=== PATIENT | female | born 1995 ===

== ENCOUNTER 2018-12-21 02:11 | Emergency (ER) | payer OTHER ==
[2018-12-21 02:22] VITALS: RESP 16; TEMP 97.4
[2018-12-21 03:51] VITALS: BP 124/79; PULSE 72
--- NOTE | 2018-12-21 03:51 | C.PDOC ---
History Of Present Illness 23 year old female with Hx of asthma presents with 2 weeks of SOB. Patient states it does not feel like her asthma, reports it feels like she cannot take a full breath. She went to her PMD 5 days ago who gave her steroids and a refill of her albuterol inhaler which she has been using with no relief. Patient admits she feels the symptoms only when she thinks about breathing. Denies illicit drug use, cigarette use, fever, chills, nausea, or vomiting. Time Seen by Provider: 12/21/18 02:30 Chief Complaint (Nursing): Shortness Of Breath History Per: Patient History/Exam Limitations: no limitations Onset/Duration Of Symptoms: Days (2 weeks) Current Symptoms Are (Timing): Still Present Current Respiratory Medications: Albuterol, Other (Steroids) Associated Symptoms: denies: Fever, Chills, Other (Nausea, vomiting) Past Medical History Reviewed: Historical Data, Nursing Documentation, Vital Signs Vital Signs: Last Vital Signs Temp 97.4 F L 12/21/18 02:19 Pulse 75 12/21/18 02:19 Resp 16 12/21/18 02:31 BP 125/84 12/21/18 02:19 Pulse Ox 100 12/21/18 02:31 - Medical History PMH: Asthma Family History: States: Unknown Family Hx - Social History Hx Alcohol Use: Yes Hx Substance Use: No Review Of Systems Constitutional: Negative for: Fever, Chills ENT: Negative for: Mouth Swelling Cardiovascular: Negative for: Chest Pain, Palpitations Respiratory: Positive for: Shortness of Breath Gastrointestinal: Negative for: Nausea, Vomiting Genitourinary: Negative for: Dysuria, Hematuria Musculoskeletal: Negative for: Back Pain Skin: Negative for: Rash Physical Exam - Physical Exam Appears: Non-toxic, No Acute Distress Skin: Normal Color, Warm, No Rash Head: Atraumatic, Normacephalic Eye(s): bilateral: Normal Inspection Oral Mucosa: Moist Throat: Normal (No swelling or injection), No Exudate Neck: Normal ROM, Supple Cardiovascular: Rhythm Regular Respiratory: Normal Breath Sounds, No Accessory Muscle Use, Other (Normal inspiratory effort, moving air well, speaking in full sentences) Neurological/Psych: Oriented x3, Normal Speech ED Course And Treatment - Laboratory Results Lab Results: D-Dimer, Quantitative < 200 ng/mlDDU (0-243) 12/21/18 03:04 O2 Sat by Pulse Oximetry: 100 (room air) Pulse Ox Interpretation: Normal - Radiology CXR: Interpreted by Me, Viewed By Me CXR Interpretation: Yes: No Acute Disease. No: Infiltrates Medical Decision Making Medical Decision Making: CXR was negative, ddimer checked as patient admits she was on control which she stopped 2 weeks ago, no recent prolonged travel, ddimer was negative, referred back to primary for follow up. Disposition Counseled Patient/Family Regarding: Diagnosis, Need For Followup - Disposition Referrals: [facility] [Outside] Disposition: HOME/ ROUTINE Disposition Time: 03:47 Condition: STABLE Instructions: Shortness of Breath (Dyspnea) (DC) Forms: [facility] ([place]ian), General Discharge Instructions - Clinical Impression Clinical Impression: SOB (shortness of breath) - PA / [employer] / Resident Statement MD/DO has reviewed & agrees with the documentation as recorded. - Scribe Statement The provider has reviewed the documentation as recorded by the Scribe Topher Lemos All medical record entries made by the Scribe were at my direction and personally dictated by me. I have reviewed the chart and agree that the record accurately reflects my personal performance of the history, physical exam, medical decision making, and the department course for this patient. I have also personally directed, reviewed, and agree with the discharge instructions and disposition.
[2018-12-21 03:52] VITALS: O2SAT 100
--- NOTE | 2018-12-21 17:39 | RAD ---
Date of service: 12/21/2018 HISTORY: sob COMPARISON: No prior. TECHNIQUE: Chest PA and lateral views FINDINGS: LUNGS: No active pulmonary disease. PLEURA: No significant pleural effusion identified. No pneumothorax apparent. CARDIOVASCULAR: No aortic atherosclerotic calcification present. Normal cardiac size. No pulmonary vascular congestion. OSSEOUS STRUCTURES: No significant abnormalities. VISUALIZED UPPER ABDOMEN: Normal. OTHER FINDINGS: None. IMPRESSION: No active disease.
== END 2018-12-21 04:00 | disposition home or self-care (01) ==
LOC: C.ER 02:11
DX: R06.02 Shortness of breath (principal)